=== PATIENT | male | born 1950 | race Caucasian/White ===

== ENCOUNTER 2021-10-05 15:55 | Inpatient (IN) | payer MEDICARE ==
[2021-10-05 18:11] VITALS: BMI 33.0
[2021-10-05] MEDS ORDERED: HYDROcodone/Acetaminophen 10/325 mg Tablet PO SCH (18:15)
[2021-10-05] MEDS ORDERED: Loratadine 10 MG TAB PO SCH (20:00)
[2021-10-05] MEDS: Vancomycin 25 MG/ML Oral SOLN PO SCH (20:28)
[2021-10-05] MEDS: Saccharomyces boulardii 250 MG CAP PO SCH (20:29)
[2021-10-05] MEDS: Ciprofloxacin 500 MG TAB PO SCH (20:30)
[2021-10-05] MEDS: HYDROcodone/Acetaminophen 10/325 mg Tablet PO PRN (20:30)
[2021-10-05] MEDS: Potassium Chloride 20 MEQ TAB PO SCH (20:30)
[2021-10-05] MEDS ORDERED: Atorvastatin Calcium 10 MG TAB PO SCH (21:00)
[2021-10-06 05:32] LABS: #Basophils 0.1 thou/uL (0.0-0.2); #Eosinphils 0.4 thou/uL (0.0-0.7); #Neutrophils 5.9 thou/uL (1.40-6.50); %Basophils 1.1 % (0.0-1.0); %Lymphocytes 21.7 % (21.0-51.0); %Monocytes 10.2 % (0.0-10.0); %Neutrophils 62.9 % (42.0-75.0); Hemoglobin 9.7 g/dL (14.0-18.0); Mean Corpuscular HGB CONC 32.6 g/dL (32.0-36.0); Mean Corpuscular Hemoglobin 26.8 pg (27.0-31.0); Mean Corpuscular Volume 82.2 fL (78.0-98.0); Mean Platelet Volume 5.7 fL (7.4-10.4); Platelet Count 659 thou/uL (130-400); RBC Distribution Width 13.2 % (11.5-14.5); White Blood Cell (WBC) Count 9.4 thou/uL (4.8-10.8)
[2021-10-06 05:44] LABS: ALT (SGPT) 16 U/L (8-55); AST (SGOT) 20 U/L (5-34); Albumin 3.1 g/dL (3.4-4.8); Alkaline Phosphatase 118 U/L (40-110); Anion Gap 14 mmol/L (10-20); BUN (Urea Nitrogen) 21 mg/dL (8.4-25.7); Bilirubin, Total 0.4 mg/dL (0.2-1.2); Calc. Creatinine Clearance 138 mL/min (70-130); Calcium 10.4 mg/dL (7.8-10.44); Carbon Dioxide 32 mmol/L (23-31); Chloride 96 mmol/L (98-107); Globulin 3.8 g/dL (2.4-3.5); Glucose 121 mg/dL (80-115); Potassium 3.4 mmol/L (3.5-5.1); Protein, Total 6.9 g/dL (5.8-8.1); Sodium 139 mmol/L (136-145)
[2021-10-06] MEDS ORDERED: DAPTOMYCIN 350 MG IV SCH (09:00)
[2021-10-06] MEDS ORDERED: FLU VACC QS2021-22(65YR UP)/PF 240 MCG/0.7 ML SYRINGE IM ONE (09:00)
[2021-10-06] MEDS: Enoxaparin Sodium 40 MG/0.4 ML SYRINGE SC SCH (09:30)
[2021-10-06] MEDS: Metolazone 5 MG TAB PO SCH (09:31)
[2021-10-06] MEDS: Multivit, Therapeutic 1 TAB PO SCH (09:31)
[2021-10-06] MEDS: Potassium Chloride 20 MEQ TAB PO SCH ×2 (09:31→20:59)
[2021-10-06] MEDS: Ferrous Sulfate 325 MG TAB PO SCH (09:31)
[2021-10-06] MEDS: Torsemide 20 MG TAB PO SCH (09:31)
[2021-10-06] MEDS: Ciprofloxacin 500 MG TAB PO SCH ×2 (09:32→20:59)
[2021-10-06] MEDS: Saccharomyces boulardii 250 MG CAP PO SCH ×2 (09:32→20:59)
[2021-10-06] MEDS: HYDROcodone/Acetaminophen 10/325 mg Tablet PO PRN ×2 (09:58→17:16)
[2021-10-06] MEDS: Lidocaine 5% Patch TD SCH (09:59)
[2021-10-06] MEDS: Loratadine 10 MG TAB PO SCH (10:09)
[2021-10-06] MEDS: Vancomycin 25 MG/ML Oral SOLN PO SCH ×4 (10:09→20:58)
[2021-10-06] MEDS: Lidocaine Patch Removal TOP SCH (20:59)
[2021-10-07] MEDS: Lidocaine 5% Patch TD SCH (08:44)
[2021-10-07] MEDS: Vancomycin 25 MG/ML Oral SOLN PO SCH ×4 (08:45→21:06)
[2021-10-07] MEDS: Enoxaparin Sodium 40 MG/0.4 ML SYRINGE SC SCH (08:45)
[2021-10-07] MEDS: Metolazone 5 MG TAB PO SCH (08:46)
[2021-10-07] MEDS: Loratadine 10 MG TAB PO SCH (08:46)
[2021-10-07] MEDS: Potassium Chloride 20 MEQ TAB PO SCH ×2 (08:46→21:06)
[2021-10-07] MEDS: Saccharomyces boulardii 250 MG CAP PO SCH ×2 (08:46→21:05)
[2021-10-07] MEDS: Torsemide 20 MG TAB PO SCH (08:46)
[2021-10-07] MEDS: Ciprofloxacin 500 MG TAB PO SCH ×2 (08:47→21:06)
[2021-10-07] MEDS: Ferrous Sulfate 325 MG TAB PO SCH (08:48)
[2021-10-07] MEDS: Multivit, Therapeutic 1 TAB PO SCH (08:48)
[2021-10-07] MEDS: HYDROcodone/Acetaminophen 10/325 mg Tablet PO PRN ×2 (10:17→21:05)
[2021-10-07] MEDS: clonazePAM 0.5 MG TAB PO PRN (17:45)
[2021-10-07] MEDS: Loperamide HCl 2 MG CAP PO PRN (18:02)
[2021-10-07] MEDS: Lidocaine Patch Removal TOP SCH (21:07)
[2021-10-08] MEDS: Torsemide 20 MG TAB PO SCH (10:05)
[2021-10-08] MEDS: Ciprofloxacin 500 MG TAB PO SCH ×2 (10:05→20:36)
[2021-10-08] MEDS: Enoxaparin Sodium 40 MG/0.4 ML SYRINGE SC SCH (10:05)
[2021-10-08] MEDS: Loratadine 10 MG TAB PO SCH (10:06)
[2021-10-08] MEDS: Potassium Chloride 20 MEQ TAB PO SCH ×2 (10:06→20:35)
[2021-10-08] MEDS: Multivit, Therapeutic 1 TAB PO SCH (10:06)
[2021-10-08] MEDS: Saccharomyces boulardii 250 MG CAP PO SCH ×2 (10:06→20:36)
[2021-10-08] MEDS: Ferrous Sulfate 325 MG TAB PO SCH (10:06)
[2021-10-08] MEDS: Metolazone 5 MG TAB PO SCH (10:06)
[2021-10-08] MEDS: Lidocaine 5% Patch TD SCH (10:07)
[2021-10-08] MEDS: Vancomycin 25 MG/ML Oral SOLN PO SCH ×4 (10:09→20:34)
[2021-10-08] MEDS: HYDROcodone/Acetaminophen 10/325 mg Tablet PO PRN ×2 (11:27→17:57)
[2021-10-08] MEDS: Loperamide HCl 2 MG CAP PO PRN (13:15)
[2021-10-08] MEDS: clonazePAM 0.5 MG TAB PO PRN (20:36)
[2021-10-08] MEDS: Guaifenesin DM 100-10/5 ML UDCUP PO PRN (20:38)
[2021-10-08] MEDS: Lidocaine Patch Removal TOP SCH (20:41)
[2021-10-09] MEDS: HYDROcodone/Acetaminophen 10/325 mg Tablet PO PRN ×3 (06:26→22:08)
[2021-10-09] MEDS: Lidocaine 5% Patch TD SCH (09:07)
[2021-10-09] MEDS: Multivit, Therapeutic 1 TAB PO SCH (09:08)
[2021-10-09] MEDS: Metolazone 5 MG TAB PO SCH (09:08)
[2021-10-09] MEDS: Torsemide 20 MG TAB PO SCH (09:08)
[2021-10-09] MEDS: Potassium Chloride 20 MEQ TAB PO SCH ×2 (09:08→20:53)
[2021-10-09] MEDS: Ferrous Sulfate 325 MG TAB PO SCH (09:08)
[2021-10-09] MEDS: Saccharomyces boulardii 250 MG CAP PO SCH ×2 (09:08→20:54)
[2021-10-09] MEDS: Enoxaparin Sodium 40 MG/0.4 ML SYRINGE SC SCH (09:08)
[2021-10-09] MEDS: Loratadine 10 MG TAB PO SCH (09:09)
[2021-10-09] MEDS: Vancomycin 25 MG/ML Oral SOLN PO SCH ×4 (09:09→20:55)
[2021-10-09] MEDS: Ciprofloxacin 500 MG TAB PO SCH ×2 (09:09→20:54)
[2021-10-09] MEDS: clonazePAM 0.5 MG TAB PO PRN (20:54)
[2021-10-09] MEDS: Loperamide HCl 2 MG CAP PO PRN (20:54)
[2021-10-09] MEDS: Lidocaine Patch Removal TOP SCH (20:56)
[2021-10-09] MEDS: Guaifenesin DM 100-10/5 ML UDCUP PO PRN (22:10)
[2021-10-10] MEDS: Lidocaine 5% Patch TD SCH (08:10)
[2021-10-10] MEDS: Vancomycin 25 MG/ML Oral SOLN PO SCH ×4 (08:11→21:52)
[2021-10-10] MEDS: HYDROcodone/Acetaminophen 10/325 mg Tablet PO PRN ×3 (08:11→21:51)
[2021-10-10] MEDS: Metolazone 5 MG TAB PO SCH (08:11)
[2021-10-10] MEDS: Ferrous Sulfate 325 MG TAB PO SCH (08:11)
[2021-10-10] MEDS: Ciprofloxacin 500 MG TAB PO SCH ×2 (08:11→21:53)
[2021-10-10] MEDS: Saccharomyces boulardii 250 MG CAP PO SCH ×2 (08:12→21:53)
[2021-10-10] MEDS: Enoxaparin Sodium 40 MG/0.4 ML SYRINGE SC SCH (08:12)
[2021-10-10] MEDS: Torsemide 20 MG TAB PO SCH (08:12)
[2021-10-10] MEDS: Loratadine 10 MG TAB PO SCH (08:12)
[2021-10-10] MEDS: Multivit, Therapeutic 1 TAB PO SCH (08:12)
[2021-10-10] MEDS: Potassium Chloride 20 MEQ TAB PO SCH ×2 (08:12→21:53)
[2021-10-10] MEDS: Lidocaine Patch Removal TOP SCH (21:54)
[2021-10-10] MEDS: Guaifenesin DM 100-10/5 ML UDCUP PO PRN (23:48)
[2021-10-10] MEDS: clonazePAM 0.5 MG TAB PO PRN (23:49)
[2021-10-11] MEDS: Loperamide HCl 2 MG CAP PO PRN ×2 (01:35→09:13)
[2021-10-11] MEDS: Ferrous Sulfate 325 MG TAB PO SCH (08:34)
[2021-10-11] MEDS: Torsemide 20 MG TAB PO SCH (08:34)
[2021-10-11] MEDS: Multivit, Therapeutic 1 TAB PO SCH (08:34)
[2021-10-11] MEDS: Loratadine 10 MG TAB PO SCH (08:35)
[2021-10-11] MEDS: Metolazone 5 MG TAB PO SCH (08:35)
[2021-10-11] MEDS: Saccharomyces boulardii 250 MG CAP PO SCH ×2 (08:35→21:17)
[2021-10-11] MEDS: Enoxaparin Sodium 40 MG/0.4 ML SYRINGE SC SCH (08:35)
[2021-10-11] MEDS: Ciprofloxacin 500 MG TAB PO SCH ×2 (08:35→21:17)
[2021-10-11] MEDS: Vancomycin 25 MG/ML Oral SOLN PO SCH ×4 (08:36→21:17)
[2021-10-11] MEDS: Potassium Chloride 20 MEQ TAB PO SCH ×2 (08:36→21:18)
[2021-10-11] MEDS: HYDROcodone/Acetaminophen 10/325 mg Tablet PO PRN ×2 (09:49→17:50)
[2021-10-11] MEDS: Lidocaine 5% Patch TD SCH (10:20)
[2021-10-11] MEDS: clonazePAM 0.5 MG TAB PO PRN (18:35)
[2021-10-11] MEDS: Guaifenesin DM 100-10/5 ML UDCUP PO PRN (18:35)
[2021-10-11] MEDS: Lidocaine Patch Removal TOP SCH (21:00)
[2021-10-12] MEDS ORDERED: Alendronate Sodium 70 mg Tablet PO SCH (09:00)
[2021-10-12] MEDS: Vancomycin 25 MG/ML Oral SOLN PO SCH ×4 (09:34→21:11)
[2021-10-12] MEDS: Enoxaparin Sodium 40 MG/0.4 ML SYRINGE SC SCH (09:35)
[2021-10-12] MEDS: Lidocaine 5% Patch TD SCH (09:35)
[2021-10-12] MEDS: Metolazone 5 MG TAB PO SCH (09:35)
[2021-10-12] MEDS: Loratadine 10 MG TAB PO SCH (09:36)
[2021-10-12] MEDS: Torsemide 20 MG TAB PO SCH (09:36)
[2021-10-12] MEDS: Loperamide HCl 2 MG CAP PO PRN (09:36)
[2021-10-12] MEDS: Multivit, Therapeutic 1 TAB PO SCH (09:36)
[2021-10-12] MEDS: Ferrous Sulfate 325 MG TAB PO SCH (09:36)
[2021-10-12] MEDS: Ciprofloxacin 500 MG TAB PO SCH ×2 (09:36→21:10)
[2021-10-12] MEDS: Potassium Chloride 20 MEQ TAB PO SCH ×2 (09:36→21:10)
[2021-10-12] MEDS: Saccharomyces boulardii 250 MG CAP PO SCH ×2 (09:37→21:10)
[2021-10-12] MEDS: HYDROcodone/Acetaminophen 10/325 mg Tablet PO PRN ×2 (09:58→17:09)
[2021-10-12] MEDS: clonazePAM 0.5 MG TAB PO PRN (21:10)
[2021-10-12] MEDS: Lidocaine Patch Removal TOP SCH (21:10)
[2021-10-13 05:52] LABS: ALT (SGPT) 20 U/L (8-55); AST (SGOT) 18 U/L (5-34); Albumin 3.1 g/dL (3.4-4.8); Alkaline Phosphatase 123 U/L (40-110); Anion Gap 14 mmol/L (10-20); BUN (Urea Nitrogen) 15 mg/dL (8.4-25.7); Bilirubin, Total 0.5 mg/dL (0.2-1.2); CK (CPK) 32 U/L (30-200); Calc. Creatinine Clearance 131 mL/min (70-130); Calcium 9.3 mg/dL (7.8-10.44); Carbon Dioxide 30 mmol/L (23-31); Chloride 97 mmol/L (98-107); Globulin 3.6 g/dL (2.4-3.5); Glucose 123 mg/dL (80-115); Protein, Total 6.7 g/dL (5.8-8.1); Sodium 138 mmol/L (136-145)
[2021-10-13 05:56] LABS: Potassium 2.5 mmol/L (3.5-5.1)
[2021-10-13 05:59] LABS: #Basophils 0.1 thou/uL (0.0-0.2); #Eosinphils 0.5 thou/uL (0.0-0.7); #Lymphocytes 2.4 thou/uL (1.20-3.40); %Basophils 1.1 % (0.0-1.0); %Eosinophils 5.4 % (0.0-10.0); %Lymphocytes 24.3 % (21.0-51.0); %Monocytes 9.9 % (0.0-10.0); %Neutrophils 59.3 % (42.0-75.0); Hemoglobin 9.7 g/dL (14.0-18.0); Mean Corpuscular HGB CONC 32.1 g/dL (32.0-36.0); Mean Corpuscular Volume 84.3 fL (78.0-98.0); Mean Platelet Volume 6.3 fL (7.4-10.4); Platelet Count 490 thou/uL (130-400); RBC Distribution Width 14.1 % (11.5-14.5); Red Blood Cell (RBC) Count 3.59 mill/uL (4.70-6.10); White Blood Cell (WBC) Count 10.1 thou/uL (4.8-10.8)
[2021-10-13] MEDS ORDERED: Potassium Chloride 20 MEQ TAB PO SCH (06:15)
[2021-10-13] MEDS: Enoxaparin Sodium 40 MG/0.4 ML SYRINGE SC SCH (10:21)
[2021-10-13] MEDS: Lidocaine 5% Patch TD SCH (10:21)
[2021-10-13] MEDS: Saccharomyces boulardii 250 MG CAP PO SCH ×2 (10:22→21:53)
[2021-10-13] MEDS: Loratadine 10 MG TAB PO SCH (10:22)
[2021-10-13] MEDS: Multivit, Therapeutic 1 TAB PO SCH (10:22)
[2021-10-13] MEDS: Ciprofloxacin 500 MG TAB PO SCH ×2 (10:23→21:54)
[2021-10-13] MEDS: Potassium Chloride 20 MEQ TAB PO SCH ×2 (10:23→21:53)
[2021-10-13] MEDS: Metolazone 5 MG TAB PO SCH (10:23)
[2021-10-13] MEDS: Torsemide 20 MG TAB PO SCH (10:24)
[2021-10-13] MEDS: Vancomycin 25 MG/ML Oral SOLN PO SCH ×4 (10:24→21:53)
[2021-10-13] MEDS: Ferrous Sulfate 325 MG TAB PO SCH (10:24)
[2021-10-13] MEDS: Loperamide HCl 2 MG CAP PO PRN (16:39)
[2021-10-13] MEDS: HYDROcodone/Acetaminophen 10/325 mg Tablet PO PRN (16:39)
[2021-10-13] MEDS: clonazePAM 0.5 MG TAB PO PRN (21:52)
[2021-10-13] MEDS: Guaifenesin DM 100-10/5 ML UDCUP PO PRN (21:52)
[2021-10-13] MEDS: Lidocaine Patch Removal TOP SCH (21:54)
[2021-10-14 06:13] LABS: ALT (SGPT) 19 U/L (8-55); AST (SGOT) 19 U/L (5-34); Albumin 3.1 g/dL (3.4-4.8); Alkaline Phosphatase 128 U/L (40-110); Anion Gap 15 mmol/L (10-20); BUN (Urea Nitrogen) 14 mg/dL (8.4-25.7); Bilirubin, Total 0.5 mg/dL (0.2-1.2); CK (CPK) 23 U/L (30-200); Calc. Creatinine Clearance 132 mL/min (70-130); Calcium 9.2 mg/dL (7.8-10.44); Carbon Dioxide 29 mmol/L (23-31); Chloride 98 mmol/L (98-107); Globulin 3.7 g/dL (2.4-3.5); Glucose 113 mg/dL (80-115); Protein, Total 6.8 g/dL (5.8-8.1); Sodium 139 mmol/L (136-145)
[2021-10-14 06:20] LABS: #Basophils 0.1 thou/uL (0.0-0.2); #Eosinphils 0.7 thou/uL (0.0-0.7); #Lymphocytes 2.6 thou/uL (1.20-3.40); #Monocytes 0.7 thou/uL (0.11-0.59); #Neutrophils 4.9 thou/uL (1.40-6.50); %Basophils 1.1 % (0.0-1.0); %Eosinophils 7.9 % (0.0-10.0); %Lymphocytes 28.7 % (21.0-51.0); %Monocytes 7.5 % (0.0-10.0); %Neutrophils 54.7 % (42.0-75.0); Hemoglobin 9.6 g/dL (14.0-18.0); Mean Corpuscular HGB CONC 31.3 g/dL (32.0-36.0); Mean Corpuscular Hemoglobin 26.6 pg (27.0-31.0); Mean Platelet Volume 6.1 fL (7.4-10.4); Platelet Count 495 thou/uL (130-400); RBC Distribution Width 14.1 % (11.5-14.5); White Blood Cell (WBC) Count 8.9 thou/uL (4.8-10.8)
[2021-10-14 07:28] LABS: Potassium 2.8 mmol/L (3.5-5.1)
[2021-10-14] MEDS: Enoxaparin Sodium 40 MG/0.4 ML SYRINGE SC SCH (08:49)
[2021-10-14] MEDS: Vancomycin 25 MG/ML Oral SOLN PO SCH ×4 (08:50→21:15)
[2021-10-14] MEDS: Ferrous Sulfate 325 MG TAB PO SCH (08:51)
[2021-10-14] MEDS: Potassium Chloride 20 MEQ TAB PO SCH ×2 (08:51→21:16)
[2021-10-14] MEDS: Multivit, Therapeutic 1 TAB PO SCH (08:51)
[2021-10-14] MEDS: Metolazone 5 MG TAB PO SCH (08:51)
[2021-10-14] MEDS: Saccharomyces boulardii 250 MG CAP PO SCH ×2 (08:52→21:16)
[2021-10-14] MEDS: Ciprofloxacin 500 MG TAB PO SCH ×2 (08:52→21:16)
[2021-10-14] MEDS: Torsemide 20 MG TAB PO SCH (08:52)
[2021-10-14] MEDS: Loratadine 10 MG TAB PO SCH (08:52)
[2021-10-14] MEDS: Lidocaine 5% Patch TD SCH (08:53)
[2021-10-14] MEDS ORDERED: Potassium Chloride 20 MEQ TAB PO SCH ×2 (09:00→09:30)
[2021-10-14] MEDS: HYDROcodone/Acetaminophen 10/325 mg Tablet PO PRN ×2 (12:56→21:14)
[2021-10-14] MEDS: Lidocaine Patch Removal TOP SCH (21:16)
[2021-10-14 22:14] LABS: SARS-CoV-2 PCR by NAA Not Detected (NotDetected)
[2021-10-15 05:47] LABS: #Basophils 0.1 thou/uL (0.0-0.2); #Eosinphils 0.6 thou/uL (0.0-0.7); #Lymphocytes 2.7 thou/uL (1.20-3.40); #Monocytes 0.9 thou/uL (0.11-0.59); #Neutrophils 4.8 thou/uL (1.40-6.50); %Basophils 0.8 % (0.0-1.0); %Eosinophils 6.6 % (0.0-10.0); %Lymphocytes 29.6 % (21.0-51.0); %Monocytes 9.7 % (0.0-10.0); %Neutrophils 53.3 % (42.0-75.0); Hemoglobin 9.6 g/dL (14.0-18.0); Mean Corpuscular Hemoglobin 26.5 pg (27.0-31.0); Mean Corpuscular Volume 82.9 fL (78.0-98.0); Mean Platelet Volume 6.4 fL (7.4-10.4); Platelet Count 514 thou/uL (130-400); RBC Distribution Width 14.2 % (11.5-14.5); Red Blood Cell (RBC) Count 3.61 mill/uL (4.70-6.10)
[2021-10-15 05:53] LABS: ALT (SGPT) 22 U/L (8-55); AST (SGOT) 22 U/L (5-34); Albumin 3.1 g/dL (3.4-4.8); Alkaline Phosphatase 133 U/L (40-110); Anion Gap 16 mmol/L (10-20); BUN (Urea Nitrogen) 16 mg/dL (8.4-25.7); Bilirubin, Total 0.5 mg/dL (0.2-1.2); CK (CPK) 24 U/L (30-200); Calc. Creatinine Clearance 127 mL/min (70-130); Calcium 9.4 mg/dL (7.8-10.44); Carbon Dioxide 29 mmol/L (23-31); Chloride 99 mmol/L (98-107); Globulin 3.7 g/dL (2.4-3.5); Glucose 110 mg/dL (80-115); Potassium 3.6 mmol/L (3.5-5.1); Protein, Total 6.8 g/dL (5.8-8.1); Sodium 140 mmol/L (136-145)
[2021-10-15] MEDS: Lidocaine 5% Patch TD SCH (09:34)
[2021-10-15] MEDS: Vancomycin 25 MG/ML Oral SOLN PO SCH ×4 (09:36→20:54)
[2021-10-15] MEDS: Enoxaparin Sodium 40 MG/0.4 ML SYRINGE SC SCH (09:37)
[2021-10-15] MEDS: Potassium Chloride 20 MEQ TAB PO SCH ×2 (09:38→20:55)
[2021-10-15] MEDS: Metolazone 5 MG TAB PO SCH (09:39)
[2021-10-15] MEDS: Multivit, Therapeutic 1 TAB PO SCH (09:39)
[2021-10-15] MEDS: Saccharomyces boulardii 250 MG CAP PO SCH ×2 (09:39→20:57)
[2021-10-15] MEDS: Ferrous Sulfate 325 MG TAB PO SCH (09:39)
[2021-10-15] MEDS: Ciprofloxacin 500 MG TAB PO SCH ×2 (09:39→20:57)
[2021-10-15] MEDS: Loratadine 10 MG TAB PO SCH (09:39)
[2021-10-15] MEDS: Torsemide 20 MG TAB PO SCH (09:39)
[2021-10-15] MEDS: HYDROcodone/Acetaminophen 10/325 mg Tablet PO PRN ×2 (10:20→18:52)
[2021-10-15] MEDS: Guaifenesin DM 100-10/5 ML UDCUP PO PRN ×2 (18:55→23:03)
[2021-10-15] MEDS: Lidocaine Patch Removal TOP SCH (20:57)
[2021-10-15] MEDS: clonazePAM 0.5 MG TAB PO PRN (23:54)
[2021-10-16 06:05] LABS: #Basophils 0.1 thou/uL (0.0-0.2); #Eosinphils 0.7 thou/uL (0.0-0.7); #Lymphocytes 2.5 thou/uL (1.20-3.40); #Monocytes 0.8 thou/uL (0.11-0.59); #Neutrophils 4.7 thou/uL (1.40-6.50); %Basophils 1.1 % (0.0-1.0); %Eosinophils 7.7 % (0.0-10.0); %Lymphocytes 28.8 % (21.0-51.0); %Monocytes 8.9 % (0.0-10.0); %Neutrophils 53.5 % (42.0-75.0); Hemoglobin 9.7 g/dL (14.0-18.0); Mean Corpuscular HGB CONC 32.7 g/dL (32.0-36.0); Mean Corpuscular Volume 82.5 fL (78.0-98.0); Mean Platelet Volume 6.2 fL (7.4-10.4); Platelet Count 481 thou/uL (130-400); Red Blood Cell (RBC) Count 3.59 mill/uL (4.70-6.10); White Blood Cell (WBC) Count 8.7 thou/uL (4.8-10.8)
[2021-10-16 06:19] LABS: ALT (SGPT) 24 U/L (8-55); AST (SGOT) 21 U/L (5-34); Albumin 3.1 g/dL (3.4-4.8); Alkaline Phosphatase 130 U/L (40-110); Anion Gap 15 mmol/L (10-20); BUN (Urea Nitrogen) 17 mg/dL (8.4-25.7); Bilirubin, Total 0.3 mg/dL (0.2-1.2); CK (CPK) 24 U/L (30-200); Calc. Creatinine Clearance 129 mL/min (70-130); Calcium 9.1 mg/dL (7.8-10.44); Carbon Dioxide 28 mmol/L (23-31); Chloride 99 mmol/L (98-107); Globulin 3.7 g/dL (2.4-3.5); Glucose 106 mg/dL (80-115); Potassium 3.2 mmol/L (3.5-5.1); Protein, Total 6.8 g/dL (5.8-8.1); Sodium 139 mmol/L (136-145)
[2021-10-16] MEDS: Enoxaparin Sodium 40 MG/0.4 ML SYRINGE SC SCH (09:03)
[2021-10-16] MEDS: Vancomycin 25 MG/ML Oral SOLN PO SCH ×4 (09:04→21:15)
[2021-10-16] MEDS: Lidocaine 5% Patch TD SCH (09:05)
[2021-10-16] MEDS: Potassium Chloride 20 MEQ TAB PO SCH ×2 (09:06→21:15)
[2021-10-16] MEDS: Ciprofloxacin 500 MG TAB PO SCH ×2 (09:07→21:16)
[2021-10-16] MEDS: Torsemide 20 MG TAB PO SCH (09:07)
[2021-10-16] MEDS: Saccharomyces boulardii 250 MG CAP PO SCH ×2 (09:07→21:16)
[2021-10-16] MEDS: Ferrous Sulfate 325 MG TAB PO SCH (09:07)
[2021-10-16] MEDS: Loratadine 10 MG TAB PO SCH (09:07)
[2021-10-16] MEDS: Multivit, Therapeutic 1 TAB PO SCH (09:08)
[2021-10-16] MEDS: Metolazone 5 MG TAB PO SCH (09:08)
[2021-10-16] MEDS: HYDROcodone/Acetaminophen 10/325 mg Tablet PO PRN ×2 (09:25→18:23)
[2021-10-16] MEDS: Lidocaine Patch Removal TOP SCH (21:22)
[2021-10-17] MEDS: HYDROcodone/Acetaminophen 10/325 mg Tablet PO PRN ×3 (01:15→16:39)
[2021-10-17] MEDS: clonazePAM 0.5 MG TAB PO PRN ×2 (01:17→20:35)
[2021-10-17 07:17] LABS: #Basophils 0.1 thou/uL (0.0-0.2); #Eosinphils 0.7 thou/uL (0.0-0.7); #Lymphocytes 2.5 thou/uL (1.20-3.40); #Monocytes 0.7 thou/uL (0.11-0.59); #Neutrophils 4.5 thou/uL (1.40-6.50); %Basophils 0.9 % (0.0-1.0); %Lymphocytes 29.2 % (21.0-51.0); %Monocytes 8.5 % (0.0-10.0); %Neutrophils 53.4 % (42.0-75.0); Hemoglobin 9.3 g/dL (14.0-18.0); Mean Corpuscular HGB CONC 31.6 g/dL (32.0-36.0); Mean Corpuscular Hemoglobin 26.5 pg (27.0-31.0); Mean Corpuscular Volume 83.9 fL (78.0-98.0); Mean Platelet Volume 6.2 fL (7.4-10.4); Platelet Count 493 thou/uL (130-400); RBC Distribution Width 14.3 % (11.5-14.5); Red Blood Cell (RBC) Count 3.52 mill/uL (4.70-6.10); White Blood Cell (WBC) Count 8.4 thou/uL (4.8-10.8)
[2021-10-17 07:31] LABS: ALT (SGPT) 21 U/L (8-55); AST (SGOT) 21 U/L (5-34); Albumin 3.1 g/dL (3.4-4.8); Alkaline Phosphatase 126 U/L (40-110); Anion Gap 14 mmol/L (10-20); BUN (Urea Nitrogen) 13 mg/dL (8.4-25.7); Bilirubin, Total 0.3 mg/dL (0.2-1.2); CK (CPK) 21 U/L (30-200); Calc. Creatinine Clearance 131 mL/min (70-130); Calcium 9.1 mg/dL (7.8-10.44); Carbon Dioxide 28 mmol/L (23-31); Chloride 100 mmol/L (98-107); Globulin 3.6 g/dL (2.4-3.5); Glucose 106 mg/dL (80-115); Potassium 3.3 mmol/L (3.5-5.1); Protein, Total 6.7 g/dL (5.8-8.1); Sodium 139 mmol/L (136-145)
[2021-10-17] MEDS ORDERED: Diphenoxylate HCl/Atropine Tablet PO PRN (07:33)
[2021-10-17] MEDS ORDERED: Potassium Chloride 20 MEQ TAB ONE ×4 (08:27→20:11)
[2021-10-17] MEDS: Vancomycin 25 MG/ML Oral SOLN PO SCH ×4 (09:49→20:34)
[2021-10-17] MEDS: Lidocaine 5% Patch TD SCH (09:50)
[2021-10-17] MEDS: Enoxaparin Sodium 40 MG/0.4 ML SYRINGE SC SCH (09:50)
[2021-10-17] MEDS: Saccharomyces boulardii 250 MG CAP PO SCH ×2 (09:50→20:35)
[2021-10-17] MEDS: Potassium Chloride 20 MEQ TAB PO SCH ×2 (09:50→20:34)
[2021-10-17] MEDS: Torsemide 20 MG TAB PO SCH (09:51)
[2021-10-17] MEDS: Metolazone 5 MG TAB PO SCH (09:51)
[2021-10-17] MEDS: Loratadine 10 MG TAB PO SCH (09:51)
[2021-10-17] MEDS: Multivit, Therapeutic 1 TAB PO SCH (09:51)
[2021-10-17] MEDS: Ferrous Sulfate 325 MG TAB PO SCH (09:51)
[2021-10-17] MEDS: Guaifenesin DM 100-10/5 ML UDCUP PO PRN (20:35)
[2021-10-17] MEDS: Lidocaine Patch Removal TOP SCH (20:35)
[2021-10-18 06:07] LABS: #Basophils 0.1 thou/uL (0.0-0.2); #Eosinphils 0.6 thou/uL (0.0-0.7); #Lymphocytes 2.1 thou/uL (1.20-3.40); #Monocytes 0.8 thou/uL (0.11-0.59); #Neutrophils 4.7 thou/uL (1.40-6.50); %Basophils 1.4 % (0.0-1.0); %Lymphocytes 25.4 % (21.0-51.0); %Monocytes 9.2 % (0.0-10.0); Mean Corpuscular HGB CONC 31.6 g/dL (32.0-36.0); Mean Corpuscular Hemoglobin 26.5 pg (27.0-31.0); Mean Corpuscular Volume 83.8 fL (78.0-98.0); Mean Platelet Volume 6.5 fL (7.4-10.4); Platelet Count 524 thou/uL (130-400); RBC Distribution Width 15.1 % (11.5-14.5); Red Blood Cell (RBC) Count 3.78 mill/uL (4.70-6.10); White Blood Cell (WBC) Count 8.3 thou/uL (4.8-10.8)
[2021-10-18 06:18] LABS: ALT (SGPT) 28 U/L (8-55); AST (SGOT) 23 U/L (5-34); Albumin 3.3 g/dL (3.4-4.8); Alkaline Phosphatase 132 U/L (40-110); Anion Gap 14 mmol/L (10-20); BUN (Urea Nitrogen) 14 mg/dL (8.4-25.7); Bilirubin, Total 0.3 mg/dL (0.2-1.2); CK (CPK) 20 U/L (30-200); Calc. Creatinine Clearance 122 mL/min (70-130); Calcium 9.2 mg/dL (7.8-10.44); Carbon Dioxide 29 mmol/L (23-31); Chloride 99 mmol/L (98-107); Globulin 3.9 g/dL (2.4-3.5); Glucose 113 mg/dL (80-115); Potassium 3.3 mmol/L (3.5-5.1); Protein, Total 7.2 g/dL (5.8-8.1); Sodium 139 mmol/L (136-145)
[2021-10-18] MEDS ORDERED: Potassium Chloride 20 MEQ TAB PO SCH ×2 (06:30→08:30)
[2021-10-18] MEDS ORDERED: Potassium Chloride 20 MEQ TAB ONE ×2 (08:40)
[2021-10-18] MEDS: Lidocaine 5% Patch TD SCH (09:40)
[2021-10-18] MEDS: Vancomycin 25 MG/ML Oral SOLN PO SCH ×4 (09:40→20:34)
[2021-10-18] MEDS: Metolazone 5 MG TAB PO SCH (09:41)
[2021-10-18] MEDS: Saccharomyces boulardii 250 MG CAP PO SCH ×2 (09:41→20:32)
[2021-10-18] MEDS: Ferrous Sulfate 325 MG TAB PO SCH (09:41)
[2021-10-18] MEDS: Multivit, Therapeutic 1 TAB PO SCH (09:41)
[2021-10-18] MEDS: Loratadine 10 MG TAB PO SCH (09:41)
[2021-10-18] MEDS: Torsemide 20 MG TAB PO SCH (09:41)
[2021-10-18] MEDS: Potassium Chloride 20 MEQ TAB PO SCH ×2 (09:41→20:31)
[2021-10-18] MEDS: Enoxaparin Sodium 40 MG/0.4 ML SYRINGE SC SCH (09:42)
[2021-10-18] MEDS: HYDROcodone/Acetaminophen 10/325 mg Tablet PO PRN ×2 (09:47→20:32)
[2021-10-18] MEDS: Guaifenesin DM 100-10/5 ML UDCUP PO PRN (20:32)
[2021-10-18] MEDS: clonazePAM 0.5 MG TAB PO PRN (20:32)
[2021-10-18] MEDS: Lidocaine Patch Removal TOP SCH (20:36)
[2021-10-19] MEDS: HYDROcodone/Acetaminophen 10/325 mg Tablet PO PRN ×2 (09:32→15:34)
[2021-10-19] MEDS: Lidocaine 5% Patch TD SCH (09:33)
[2021-10-19] MEDS: Potassium Chloride 20 MEQ TAB PO SCH ×2 (09:33→21:29)
[2021-10-19] MEDS: Vancomycin 25 MG/ML Oral SOLN PO SCH ×4 (09:34→21:28)
[2021-10-19] MEDS: Enoxaparin Sodium 40 MG/0.4 ML SYRINGE SC SCH (09:34)
[2021-10-19] MEDS: Saccharomyces boulardii 250 MG CAP PO SCH ×2 (09:34→21:29)
[2021-10-19] MEDS: Torsemide 20 MG TAB PO SCH (09:35)
[2021-10-19] MEDS: Multivit, Therapeutic 1 TAB PO SCH (09:35)
[2021-10-19] MEDS: Metolazone 5 MG TAB PO SCH (09:35)
[2021-10-19] MEDS: Loratadine 10 MG TAB PO SCH (09:35)
[2021-10-19] MEDS: Ferrous Sulfate 325 MG TAB PO SCH (09:36)
[2021-10-19] MEDS: Guaifenesin DM 100-10/5 ML UDCUP PO PRN (21:29)
[2021-10-19] MEDS: clonazePAM 0.5 MG TAB PO PRN (21:29)
[2021-10-19] MEDS: Lidocaine Patch Removal TOP SCH (21:30)
[2021-10-20] MEDS: Lidocaine 5% Patch TD SCH (09:31)
[2021-10-20] MEDS: Torsemide 20 MG TAB PO SCH (09:32)
[2021-10-20] MEDS: Potassium Chloride 20 MEQ TAB PO SCH (09:32)
[2021-10-20] MEDS: Saccharomyces boulardii 250 MG CAP PO SCH ×2 (09:32→21:43)
[2021-10-20] MEDS: Enoxaparin Sodium 40 MG/0.4 ML SYRINGE SC SCH (09:33)
[2021-10-20] MEDS: Vancomycin 25 MG/ML Oral SOLN PO SCH ×4 (09:33→21:44)
[2021-10-20] MEDS: Multivit, Therapeutic 1 TAB PO SCH (09:33)
[2021-10-20] MEDS: Loratadine 10 MG TAB PO SCH (09:33)
[2021-10-20] MEDS: Ferrous Sulfate 325 MG TAB PO SCH (09:33)
[2021-10-20] MEDS: Metolazone 5 MG TAB PO SCH (09:33)
[2021-10-20] MEDS: HYDROcodone/Acetaminophen 10/325 mg Tablet PO PRN ×2 (10:59→21:43)
[2021-10-20] MEDS: Guaifenesin DM 100-10/5 ML UDCUP PO PRN (21:42)
[2021-10-20] MEDS: clonazePAM 0.5 MG TAB PO PRN (21:45)
[2021-10-20] MEDS: Lidocaine Patch Removal TOP SCH (21:45)
[2021-10-20] MEDS ORDERED: Potassium Chloride 20 MEQ TAB PO SCH (21:45)
[2021-10-21] MEDS: Potassium Chloride 20 MEQ TAB PO SCH (00:24)
[2021-10-21 05:39] VITALS: BP 131/80; TEMP 98.5
[2021-10-21] MEDS: Enoxaparin Sodium 40 MG/0.4 ML SYRINGE SC SCH (08:46)
[2021-10-21] MEDS: Lidocaine 5% Patch TD SCH (08:46)
[2021-10-21] MEDS: Torsemide 20 MG TAB PO SCH (08:47)
[2021-10-21] MEDS: Metolazone 5 MG TAB PO SCH (08:47)
[2021-10-21] MEDS: Multivit, Therapeutic 1 TAB PO SCH (08:47)
[2021-10-21] MEDS: Saccharomyces boulardii 250 MG CAP PO SCH (08:47)
[2021-10-21] MEDS: Vancomycin 25 MG/ML Oral SOLN PO SCH ×2 (08:47→13:28)
[2021-10-21] MEDS: Ferrous Sulfate 325 MG TAB PO SCH (08:47)
[2021-10-21] MEDS: Loratadine 10 MG TAB PO SCH (08:47)
[2021-10-21] MEDS ORDERED: Potassium Chloride 20 MEQ TAB PO SCH (09:00)
[2021-10-21] MEDS: HYDROcodone/Acetaminophen 10/325 mg Tablet PO PRN ×2 (09:01→15:46)
== END 2021-10-21 16:00 | disposition home or self-care (01) | DRG 95 ==
LOC: BURMED 15:55
PROVIDERS: ADMIT Family Medicine; ATTEND Family Medicine
DX: G06.2 Extradural and subdural abscess, unspecified (principal); A04.72 Enterocolitis due to Clostridium difficile, not specified as recurrent; R53.1 Weakness; I10 Essential (primary) hypertension; M19.90 Unspecified osteoarthritis, unspecified site; F41.9 Anxiety disorder, unspecified; N40.0 Benign prostatic hyperplasia without lower urinary tract symptoms; G89.29 Other chronic pain; M54.9 Dorsalgia, unspecified; E78.5 Hyperlipidemia, unspecified; E66.01 Morbid (severe) obesity due to excess calories; M81.0 Age-related osteoporosis without current pathological fracture; D64.9 Anemia, unspecified; Z20.822 Contact with and (suspected) exposure to COVID-19; R26.89 Other abnormalities of gait and mobility; I89.0 Lymphedema, not elsewhere classified; W19.XXXD Unspecified fall, subsequent encounter; E87.6 Hypokalemia; S72.002D Fracture of unspecified part of neck of left femur, subsequent encounter for closed fracture with routine healing; Z91.041 Radiographic dye allergy status; Z79.899 Other long term (current) drug therapy; Z68.33 Body mass index [BMI] 33.0-33.9, adult
CPT/HCPCS: 36415; 80053; 82550; 85025; 86140; 90471; 90662; G0008; J0878; J1650; J3490; U0003; U0005